=== PATIENT | female | born 1990 | race Hispanic/Latino ===

== ENCOUNTER 2018-03-30 14:54 | Emergency (ER) | payer OTHER, SELFPAY ==
--- NOTE | 2018-03-30 17:40 | RAD REPORT ---
EXAM DESCRIPTION: US - OB Limited - 03/30/2018 5:25 pm CLINICAL HISTORY: ABD PAIN age. COMPARISON: None FINDINGS: A single breech presenting gestation is identified. Heart rate normal. Examination was limited and anatomic survey was not requested. measurements are as follows: BPD:2.7 Centimeters 14 weeks 5 days HC:10.6 Centimeters 15 weeks 0 days AC:8.9 Centimeters 15 weeks 1 day HL:1.6 Centimeters 14 weeks 5 days FL:1.8 Centimeters 15 weeks 2 days The estimated gestational age (EGA) is 15 weeks 0 days with an ILYA of09/21/2018. The placenta is grade 0, posterior in location. No placenta previa. The amniotic fluid volume is normal. The maternal adnexa show no worrisome findings. IMPRESSION: 1. Single, breech gestation with an EGA of 15 weeks 0 days and an ILYA of the 09/21/2018. 2. A limited study was requested with no anatomic survey performed. 3. Grade 0, posterior placenta. 4. Amniotic fluid volume is normal.
[2018-03-30 17:55] LABS: Urine Bacteria 20-50 /HPF (<20); Urine Culture Reflex Order REFLEXED; Urine Mucus 2+ /HPF (NONE SEEN); Urine RBC <5 /HPF (NONE SEEN)
[2018-03-30 18:03] LABS: Urine Blood TRACE (NEG); Urine Glucose NEGATIVE (NEG); Urine Protein NEGATIVE (NEG); Urine Specific Gravity 1.025 (1.005-1.030); Urine pH 6.5 (5.0-7.0)
--- NOTE | 2018-03-30 18:07 | EDPHYS ---
Physician Documentation [facility] Name: Reese Baltazar Age: 27 yrs Sex: Female : 1990 Arrival Date: 03/30/2018 Time: 14:55 Bed 13 Private MD: ED Physician Aniceto Huynh HPI: 03/30 16:05 This 27 yrs old Female presents to ER via Ambulatory with complaints of Fall snw Injury, Abdominal Pain - 15 Weeks Preg. 16:05 Details of fall: The patient fell from an upright position, while standing, slipped in snw shower. Onset: The symptoms/episode began/occurred suddenly, this morning. Associated injuries: The patient sustained landed on right shoulder and right hip, denies hitting abdomen or head. Severity of symptoms: At their worst the symptoms were moderate. The patient has not experienced similar symptoms in the past. sees [facility] in [place]. 15wk IUP, . noted pink tinge on toilet paper this afternoon, mild upper abd cramping. Historical: - Allergies: 15:43 No Known Allergies; ph - PMHx: 15:43 Asthma; ph - PSHx: 15:43 ; ; ph - Immunization history:: Adult Immunizations up to date. - Social history:: Smoking status: Patient/guardian denies using tobacco. - Ebola Screening: : Patient denies travel to an Ebola-affected area in the 21 days before illness onset. ROS: 16:02 Constitutional: Negative for fever, chills, and weight loss, Eyes: Negative for injury, snw pain, redness, and discharge, ENT: Negative for injury, pain, and discharge, Neck: Negative for injury, pain, and swelling, Cardiovascular: Negative for chest pain, palpitations, and edema, Respiratory: Negative for shortness of breath, cough, wheezing, and pleuritic chest pain. 16:02 : Negative for injury, bleeding, discharge, and swelling. 16:02 Skin: Negative for injury, rash, and discoloration, Neuro: Negative for headache, weakness, numbness, tingling, and seizure. 16:02 Abdomen/GI: Positive for abdominal cramps. 16:02 Back: Positive for tenderness from right hip across lower back. 16:02 MS/extremity: Positive for injury or acute deformity, tenderness, of the right shoulder up into neck. Exam: 16:01 Constitutional: This is a well developed, well nourished patient who is awake, alert, snw and in no acute distress. Head/Face: Normocephalic, atraumatic. Eyes: Pupils equal round and reactive to light, extra-ocular motions intact. Lids and lashes normal. Conjunctiva and sclera are non-icteric and not injected. Cornea within normal limits. Periorbital areas with no swelling, redness, or edema. ENT: Nares patent. No nasal discharge, no septal abnormalities noted. Tympanic membranes are normal and external auditory canals are clear. Oropharynx with no redness, swelling, or masses, exudates, or evidence of obstruction, uvula midline. Mucous membranes moist. Neck: Trachea midline, no thyromegaly or masses palpated, and no cervical lymphadenopathy. Supple, full range of motion without nuchal rigidity, or vertebral point tenderness. No Meningismus. Chest/axilla: Normal chest wall appearance and motion. Nontender with no deformity. No lesions are appreciated. Cardiovascular: Regular rate and rhythm with a normal S1 and S2. No gallops, murmurs, or rubs. Normal PMI, no JVD. No pulse deficits. Respiratory: Lungs have equal breath sounds bilaterally, clear to auscultation and percussion. No rales, rhonchi or wheezes noted. No increased work of breathing, no retractions or nasal flaring. 16:01 Back: No spinal tenderness. No costovertebral tenderness. Full range of motion. Skin: Warm, dry with normal turgor. Normal color with no rashes, no lesions, and no evidence of cellulitis. MS/ Extremity: Pulses equal, no cyanosis. Neurovascular intact. Full, normal range of motion. Neuro: Awake and alert, GCS 15, oriented to person, place, time, and situation. Cranial nerves II-XII grossly intact. Motor strength 5/5 in all extremities. Sensory grossly intact. Cerebellar exam normal. Normal gait. 16:01 Abdomen/GI: Inspection: gravid appearance, is noted, Bowel sounds: normal, Palpation: abdomen is soft and non-tender, in all quadrants, FHT 160s. Vital Signs: 15:42 BP 134 / 92; Pulse 90; Resp 18; Temp 97.8; Pulse Ox 98% on R/A; Weight 68.04 kg; Height ph 5 ft. 0 in. (152.40 cm); 19:15 BP 116 / 67; Pulse 89; Resp 16; Pulse Ox 98% on R/A; jb4 15:42 Body Mass Index 29.29 (68.04 kg, 152.40 cm) ph MDM: 15:55 Patient medically screened. snw 17:54 Data reviewed: vital signs, nurses notes. Data interpreted: Pulse oximetry: on room air snw is 98 %. Interpretation: normal. Counseling: I had a detailed discussion with the patient and/or guardian regarding: the historical points, exam findings, and any diagnostic results supporting the discharge/admit diagnosis, radiology results, the need for outpatient follow up. Awaiting: labs results. 03/30 15:52 Order name: Urine Microscopic Only w 03/30 16:07 Order name: Abo/rh Typing snw 03/30 17:56 Order name: Urine Microscopic Only; Complete Time: 18:00 EDMS 03/30 18:01 Order name: Urine Dipstick--Ancillary (enter results) em 03/30 18:01 Order name: Urine --Ancillary (enter results) em 03/30 18:04 Order name: ABO/RH typing; Complete Time: 18:05 EDMS 03/30 15:52 Order name: Urine Dipstick-Ancillary (obtain specimen); Complete Time: 17:42 snw 03/30 15:52 Order name: FHT's; Complete Time: 16:14 snw 03/30 16:01 Order name: US OB Limited snw 03/30 17:42 Order name: US; Complete Time: 17:43 EDMS 03/30 18:04 Order name: Urine --Ancillary; Complete Time: 18:05 EDMS 03/30 18:04 Order name: Urine Dipstick-Ancillary; Complete Time: 18:05 EDMS Administered Medications: 19:12 Drug: Augmentin 875 mg Route: PO; jb4 19:13 Follow up: Response: No adverse reaction jb4 Disposition: 03/30/18 18:06 Discharged to Home. Impression: Fall on same level, unspecified, state, incidental, Urinary tract infection, site not specified. - Condition is Stable. - Discharge Instructions: Fall Prevention in the Home, Muscle Strain, and Urinary Tract Infection, Rehydration, Adult. - Prescriptions for Augmentin 875- 125 mg Oral Tablet - take 1 tablet by ORAL route every 12 hours for 10 days; 20 tablet. - Work release form, Medication Reconciliation Form, Thank You Letter, Antibiotic Education, Prescription Opioid Use form. - Follow up: Private Physician; When: 2 - 3 days; Reason: Recheck today's complaints, Continuance of care, Re-evaluation by your physician. Follow up: Emergency Department; When: As needed; Reason: Worsening of condition. Addendum: 04/01/2018 09:17 Co-signature as Attending Physician, Aniceto Huynh MD I agree with the assessment and k dr plan of care. Signatures: Dispatcher [employer] EDMS Dipti Funez, RN RN aj1 Aniceto Huynh MD MD [facility] Shira Dobbs, HOUSEKEEPING SUPERVISOR [employer]-C HOUSEKEEPING SUPERVISOR [employer] Yazmin Thurman, RN RN Lior Downs, BRIGHT RN jb4 Corrections: (The following items were deleted from the chart) 03/30 19:15 18:06 03/30/2018 18:06 Discharged to Home. Impression: Fall on same level, unspecified; jb4 state, incidental; Urinary tract infection, site not specified. Condition is Stable. Discharge Instructions: Fall Prevention in the Home, Muscle Strain, and Urinary Tract Infection, Rehydration, Adult. Prescriptions for Augmentin 875-125 mg Oral Tablet - take 1 tablet by ORAL route every 12 hours for 10 days; 20 tablet. and Forms are Medication Reconciliation Form, Thank You Letter, Antibiotic Education, Prescription Opioid Use. Follow up: Private Physician; When: 2 - 3 days; Reason: Recheck today's complaints, Continuance of care, Re-evaluation by your physician. Follow up: Emergency Department; When: As needed; Reason: Worsening of condition. snw
--- NOTE | 2018-03-30 18:07 | ER ---
Nurse's Notes [facility] Name: Reese Baltazar Age: 27 yrs Sex: Female : 1990 Arrival Date: 03/30/2018 Time: 14:55 Bed 13 Private MD: Diagnosis: Fall on same level, unspecified; state, incidental;Urinary tract infection, site not specified Presentation: 03/30 15:38 Presenting complaint: Patient states: Reports falling in shower this morning, landing ph on R side, denies head injury or LOC. States, " I'm 15 weeks and I didn't fall on my stomach so I wasn't worried, but after I went to work I started having cramping and one time when I went pee it was pinkish on the toilet paper." Pt denies bleeding at this time, reports abdominal cramping and "pressure", also c/o pain in R hip, R shoulder, or R side of neck. Care prior to arrival: None. Mechanism of Injury: Fall from standing position. Trauma event details: Injury occurred in the [facility], Injury occurred: in a public building. Injury occurred: March 30, 2018. 15:38 Acuity: MENA 3 ph 15:38 Method Of Arrival: Ambulatory ph 16:13 Transition of care: patient was not received from another setting of care. Onset of aj1 symptoms was March 30, 2018. Risk Assessment: Do you want to hurt yourself or someone else? Patient reports no desire to harm self or others. Initial Sepsis Screen: Does the patient meet any 2 criteria? No. Patient's initial sepsis screen is negative. Does the patient have a suspected source of infection? No. Patient's initial sepsis screen is negative. Historical: - Allergies: 15:43 No Known Allergies; ph - PMHx: 15:43 Asthma; ph - PSHx: 15:43 ; ; ph - Immunization history:: Adult Immunizations up to date. - Social history:: Smoking status: Patient/guardian denies using tobacco. - Ebola Screening: : Patient denies travel to an Ebola-affected area in the 21 days before illness onset. Screenin:10 Abuse screen: Denies threats or abuse. Denies injuries from another. Nutritional aj1 screening: No deficits noted. Tuberculosis screening: No symptoms or risk factors identified. 18:06 Fall Risk None identified. aj1 Assessment: 16:10 General: Appears in no apparent distress. comfortable, Behavior is calm, cooperative, aj1 appropriate for age. Pain: Complains of pain in right hip, anterior aspect of right shoulder and posterior aspect of right shoulder. Neuro: Level of Consciousness is awake, alert, obeys commands. Cardiovascular: Patient's skin is warm and dry. Respiratory: Airway is patent Respiratory effort is even, unlabored, Respiratory pattern is regular, symmetrical. GI: Abd is soft and non tender X 4 quads. Reports cramping. : Reports seeing pink when she wiped an hour ago, but she has not been pink when she wipes since then. EENT: No signs and/or symptoms were reported regarding the EENT system. Derm: No signs and/or symptoms reported regarding the dermatologic system. Skin is pink, warm \\T\\ dry. normal. Musculoskeletal: No signs and/or symptoms reported regarding the musculoskeletal system. Circulation, motion, and sensation intact. 17:10 Reassessment: Patient appears in no apparent distress at this time. No changes from aj1 previously documented assessment. Patient and/or family updated on plan of care and expected duration. Pain level reassessed. Patient is alert, oriented x 3, equal unlabored respirations, skin warm/dry/pink. 18:06 Reassessment: Patient appears in no apparent distress at this time. No changes from aj1 previously documented assessment. Patient and/or family updated on plan of care and expected duration. Pain level reassessed. Patient is alert, oriented x 3, equal unlabored respirations, skin warm/dry/pink. 19:15 Reassessment: Patient appears in no apparent distress at this time. Patient and/or jb4 family updated on plan of care and expected duration. Pain level reassessed. Patient is alert, oriented x 3, equal unlabored respirations, skin warm/dry/pink. Vital Signs: 15:42 BP 134 / 92; Pulse 90; Resp 18; Temp 97.8; Pulse Ox 98% on R/A; Weight 68.04 kg; Height ph 5 ft. 0 in. (152.40 cm); 19:15 BP 116 / 67; Pulse 89; Resp 16; Pulse Ox 98% on R/A; jb4 15:42 Body Mass Index 29.29 (68.04 kg, 152.40 cm) ph Vitals: 16:10 Heart Tones 160. aj1 ED Course: 14:55 Patient arrived in ED. as 15:41 Triage completed. ph 15:43 Arm band placed on. ph 15:44 Dipti Funez, RN is Primary Nurse. aj1 15:50 [facility] Dob[facility]C [facility] snw 15:50 Aniceto Huynh MD is Attending Physician. snw 16:10 Patient has correct armband on for positive identification. Bed in low position. Call aj1 light in reach. Side rails up X 1. 16:10 No provider procedures requiring assistance completed. aj1 17:25 Ultrasound completed. Patient tolerated well. aa4 19:14 Patient did not have IV access during this emergency room visit. jb4 Administered Medications: 19:12 Drug: Augmentin 875 mg Route: PO; jb4 19:13 Follow up: Response: No adverse reaction jb4 Outcome: 18:06 Discharge ordered by . snw 19:14 Discharged to home ambulatory. jb4 19:14 Condition: stable 19:14 Discharge instructions given to patient, Instructed on discharge instructions, follow up and referral plans. medication usage, Demonstrated understanding of instructions, follow-up care, medications, Prescriptions given X 1. 19:15 Patient left the ED. jb4 Signatures: Dipti Funez, RN RN aj Shira Dobbs FNP-C FNP-Tricia Nye Amanda aa4 Yazmin Thurman RN RN ph Bryson, James, RN RN jb4
[2018-03-30] MEDS ORDERED: AMOX/K CLAV 875 MG TAB ONE (19:08)
[2018-03-30 19:33] VITALS: TEMP 97.8; O2SAT 98
[2018-03-30 19:34] VITALS: BP 116/67
== END 2018-03-30 19:15 | disposition home or self-care (01) ==
LOC: ER 14:54
DX: O23.42 Unspecified infection of urinary tract in pregnancy, second trimester (principal); W18.2XXA Fall in (into) shower or empty bathtub, initial encounter; Y93.E1 Activity, personal bathing and showering; Y92.002 Bathroom of unspecified non-institutional (private) residence as the place of occurrence of the external cause; Z3A.15 15 weeks gestation of pregnancy
CPT/HCPCS: 76815; 81003; 81015; 81025; 86900; 86901; 87086; 87088; 99283

== ENCOUNTER 2020-08-28 14:43 | Emergency (ER) | payer OTHER, SELFPAY ==
--- OUTSIDE RECORDS SUMMARY | 2020-08-28 14:46 | XMS REPORT | Continuity of Care Document ---
:1990 Author Organization [facility] t Address [address] [place] [address] Care Team Providers Name Role Phone Unavailable Unavailable Unavailable Payers Payer Name Policy Type Policy Number Effective Date Expiration Date S ource Problems This patient has no known problems. Allergies, Adverse Reactions, Alerts Allergy Allergy Status Severity Reaction(s) Onset Inactive Treating Comm ents Source Name Type Date Date Clinician No Known DA Active U [facility] [place] acetamin DA Active SV 2012-0 [facility] ophen 2-18 [facility] [place] apple DA Active U 2012- [facility] 2[facility] [place] NUTS DA Active U 2012[facility]0 [facility] 2[facility] [place] Medications This patient has no known medications. Procedures This patient has no known procedures. Results Test Description Test Time Test Comments Results Result Comments Source CBC W/AUTO DIFF 2018-09-14 08:05:00 Test Item Value Reference Range Interpretation Comme nts WHITE BLOOD CELL (test code = WBC) 13.0 K/mm3 6.6-12.1 H RED BLOOD CELL (test code = RBC) 2.92 M/mm3 3.45-5.01 L HEMOGLOBIN (test code = HGB) 8.2 g/dL 10.7-13.9 L HEMATOCRIT (test code = HCT) 26.5 % 32.1-42.1 L MEAN CELL VOLUME (test code = MCV) 91 fL 84.1-94.8 N MEAN CELL HGB (test code = MCH) 28.1 pg 27-35 N MEAN CELL HGB CONCETRATION (test code = MCHC) 30.9 gm/dL 32.2-34. 1 L RED CELL DISTRIBUTION WIDTH (test code = RDW) 13.7 % 12.4-16. 5 N PLATELET COUNT (test code = PLT) 229 K/mm3 133-385 N IMMATURE PLATELET FRACTION (test code = IPF) 0.0 % 0.0-10.8 N MEAN PLATELET VOLUME (test code = MPV) 10.7 fl 9.1-12.7 N NEUTROPHIL % (test code = NT%) 74.3 % 56.5-79.4 N LYMPHOCYTE % (test code = LY%) 15.7 % 14.3-34.3 N MONOCYTE % (test code = MO%) 7.9 % 5.1-10.4 N EOSINOPHIL % (test code = EO%) 1.4 % 0.1-3.0 N BASOPHIL % (test code = BA%) 0.2 % 0.1-1.0 N NEUTROPHIL # (test code = NT#) 9.6 K/mm3 LYMPHOCYTE # (test code = LY#) 2.0 K/mm3 MONOCYTE # (test code = MO#) 1.0 K/mm3 EOSINOPHIL # (test code = EO#) 0.18 K/mm3 BASOPHIL # (test code = BA#) 0.0 K/mm3 RBC MORPHOLOGY REQUIRED (test code = RBCM) NORMAL NORMAL PLATELET MORPHOLOGY REQUIRED (test code = PLTMR) NORMAL GORGE L AG HEPATITIS B [id number] 13:36:00 Test Item Value Reference Range Interpretation Comments AG HEPATITIS B SURFACE (test code NONREACTIVE NONREACTIVE = HBSAG) : *IS CONSENT FORM SIGNED FOR HIV TESTING? YAB [id number] 13:36:00 Test Item Value Reference Range Interpretation Comments AB TREPONEMA (test code = TREPAB) NONREACTIVE NONREACTIVE : *IS CONSENT FORM SIGNED FOR HIV TESTING? YAB HIV 1 13:36:00 Test Item Value Reference Range Interpretation Comments AB HIV 1 2 (test NONREACTIVE NONREACTIVE Done by Rusty [facility] Jeanr code = [id number]) 4th Gen HIV Ag/Ab Combo Screen : *IS CONSENT FORM SIGNED FOR HIV TESTING? YAG HEPATITIS B [id number] 13:07:00 Test Item Value Reference Range Interpretation Comments AG HEPATITIS B SURFACE (test code NONREACTIVE NONREACTIVE = HBSAG) : *IS CONSENT FORM SIGNED FOR HIV TESTING? YAB [id number] 13:07:00 Test Item Value Reference Range Interpretation Comments AB TREPONEMA (test code = TREPAB) NONREACTIVE NONREACTIVE : *IS CONSENT FORM SIGNED FOR HIV TESTING? YAB HIV 1 13:07:00 Test Item Value Reference Range Interpretation Comments AB HIV 1 2 (test code = LTQ40DE) NONREACTIVE : *IS CONSENT FORM SIGNED FOR HIV TESTING? YCBC W/AUTO [id number] 12:26:00 Test Item Value Reference Range Interpretation Comments WHITE BLOOD CELL (test code = WBC) 8.2 K/mm3 6.6-12.1 N RED BLOOD CELL (test code = RBC) 3.34 M/mm3 3.45-5.01 L HEMOGLOBIN (test code = HGB) 9.4 g/dL 10.7-13.9 L HEMATOCRIT (test code = HCT) 30.3 % 32.1-42.1 L MEAN CELL VOLUME (test code = MCV) 91 fL 84.1-94.8 N MEAN CELL HGB (test code = MCH) 28.1 pg 27-35 N MEAN CELL HGB CONCETRATION (test 31.0 gm/dL 32.2-34.1 L code = MCHC) RED CELL DISTRIBUTION WIDTH (test 14.0 % 12.4-16.5 N code = RDW) PLATELET COUNT (test code = PLT) 261 K/mm3 133-385 N IMMATURE PLATELET FRACTION (test 0.0 % 0.0-10.8 N code = IPF) MEAN PLATELET VOLUME (test code = 10.0 fl 9.1-12.7 N MPV) NEUTROPHIL % (test code = NT%) 59.9 % 56.5-79.4 N LYMPHOCYTE % (test code = LY%) 22.1 % 14.3-34.3 N MONOCYTE % (test code = MO%) 6.4 % 5.1-10.4 N EOSINOPHIL % (test code = EO%) 10.5 % 0.1-3.0 H BASOPHIL % (test code = BA%) 0.7 % 0.1-1.0 N NEUTROPHIL # (test code = NT#) 4.9 K/mm3 LYMPHOCYTE # (test code = LY#) 1.8 K/mm3 MONOCYTE # (test code = MO#) 0.5 K/mm3 EOSINOPHIL # (test code = EO#) 0.86 K/mm3 BASOPHIL # (test code = BA#) 0.1 K/mm3 RBC MORPHOLOGY REQUIRED (test code NORMAL NORMAL = RBCM) PLATELET MORPHOLOGY REQUIRED (test NORMAL NORMAL code = PLTMR)
[2020-08-28] MEDS ORDERED: IPRATROPIUM BROM 0.5MG/2.5ML ONE (16:01)
[2020-08-28] MEDS ORDERED: ALBUTEROL 2.5 MG/3 ML NEB SOL ONE ×2 (16:01→18:15)
--- NOTE | 2020-08-28 16:16 | RAD REPORT ---
EXAM DESCRIPTION: Steven Single View08/28/2020 3:38 pm CLINICAL HISTORY: Shortness of breath COMPARISON: none FINDINGS: The lungs appear clear of acute infiltrate. The heart is normal size IMPRESSION: No acute abnormalities displayed
[2020-08-28] MEDS ORDERED: hydrOXYzine HCL 25 MG TAB ONE (18:15)
[2020-08-28] MEDS ORDERED: METHYLPREDNISOLONE 125 MG INJ ONE (18:15)
[2020-08-28 19:18] LABS: SARS-COV-2 RT PCR NEGATIVE (NEGATIVE)
--- NOTE | 2020-08-28 19:23 | EDPHYS ---
Physician Documentation [facility] Name: Reese Baltazar Age: 30 yrs Sex: Female : 1990 Arrival Date: 08/28/2020 Time: 14:46 Bed 27 Private MD: ED Physician Jitendra Short HPI: 08/28 18:24 This 30 yrs old Female presents to ER via Ambulatory with complaints of kb Shortness Of Breath. 18:24 The patient has shortness of breath at rest. Onset: The symptoms/episode began/occurred kb 3 day(s) ago. Duration: The symptoms are continuous. The patient's shortness of breath is aggravated by nothing, is alleviated by nothing. Associated signs and symptoms: Pertinent positives: non-productive cough. Severity of symptoms: At their worst the symptoms were moderate severe in the emergency department the symptoms are unchanged. The patient has experienced similar episodes in the past. The patient has not recently seen a physician. Pt reports shortness of breath and wheezing that started 3 days ago. Worse today. States the wheezing causes anxiety and it keeps getting worse. Took 2 treatments and used her inhaler multiple times with no relief. Pt appears anxious, hyperventilating. O2 100% on room air, lungs clear. Pt coached to control her breathing. Pt reports her daughter had similar symptoms last week and now her and her have this. 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 - Social history:: Smoking status: Patient reports the use of cigarette tobacco products, denies chronic smoking, but will smoke occasionally. ROS: 17:47 Constitutional: Negative for fever, chills, and weight loss, Cardiovascular: Negative kb for chest pain, palpitations, and edema, Abdomen/GI: Negative for abdominal pain, nausea, vomiting, diarrhea, and constipation, MS/Extremity: Negative for injury and deformity, Skin: Negative for injury, rash, and discoloration, Neuro: Negative for headache, weakness, numbness, tingling, and seizure. 17:47 Respiratory: Positive for cough, shortness of breath. Exam: 17:47 Constitutional: This is a well developed, well nourished patient who is awake, alert, kb and in no acute distress. Head/Face: Normocephalic, atraumatic. Cardiovascular: Regular rate and rhythm with a normal S1 and S2. No gallops, murmurs, or rubs. No pulse deficits. Abdomen/GI: Soft, non-tender. No distention Skin: Warm, dry with normal turgor. Normal color. MS/ Extremity: Pulses equal, no cyanosis. Neurovascular intact. Full, normal range of motion. Neuro: Awake and alert, GCS 15, oriented to person, place, time, and situation. Moves all extremities. Normal gait. 17:47 Constitutional: The patient appears anxious. 17:47 Respiratory: the patient does not display signs of respiratory distress, Respirations: hyperventilating, Breath sounds: are clear throughout, Respiratory: the patient does not display signs of respiratory distress, Respirations: hyperventilating, Breath sounds: are clear throughout. Vital Signs: 14:50 BP 146 / 97; Pulse 94; Resp 20; Temp 98.1; Pulse Ox 98% on R/A; Pain 0/10; hb 16:21 BP 123 / 68; Pulse 94; Resp 20; Pulse Ox 98% on R/A; Pain 5/10; kg 17:20 BP 128 / 63; Pulse 86; Resp 20; Pulse Ox 99% on R/A; kg 19:49 BP 129 / 73; Pulse 87; Resp 16; Temp 98.7; Pulse Ox 96% ; Pain 0/10; kg MDM: 14:59 Patient medically screened. [facility] 17:46 Data reviewed: vital signs, nurses notes. Data interpreted: Pulse oximetry: on room air kb is 98 %. Interpretation: normal. ED course: Pt was feeling better after treatment, now states she is feeling worse.. 18:24 Counseling: I had a detailed discussion with the patient and/or guardian regarding: the kb historical points, exam findings, and any diagnostic results supporting the discharge/admit diagnosis, lab results, radiology results, the need for outpatient follow up, a family practitioner, to return to the emergency department if symptoms worsen or persist or if there are any questions or concerns that arise at home. 08/28 17:46 Order name: COVID-19 : Document "Date of Symptom Onset" if Symptomatic. 08/28 17:46 Order name: Flu kb 08/28 15:26 Order name: Chest Single View XRAY; Complete Time: 16:22 kb 08/28 19:18 Order name: COVID-19/FLU A+B; Complete Time: 19:21 EDMS Administered Medications: 15:43 Drug: DuoNeb (albuterol 2.5 mg, ipratropium 0.5 mg) (3:1) (2.5 mg - 0.5 mg) 3 ml Route: kg Nebulizer; 16:20 Follow up: Response: No adverse reaction; Marked relief of symptoms kg 19:46 Follow up: Response: No adverse reaction; Marked relief of symptoms kg 18:03 Drug: SOLU-Medrol (methylPREDNISolone sodium succinate) 125 mg Route: IM; Site: right kg deltoid; 18:44 Follow up: Response: No adverse reaction kg 19:46 Follow up: Response: No adverse reaction kg 18:03 Drug: Albuterol 2.5 mg Route: Inhalation; kg 18:44 Follow up: Response: No adverse reaction; Marked relief of symptoms kg 19:46 Follow up: Response: No adverse reaction; Marked relief of symptoms kg 18:03 Drug: hydrOXYzine 25 mg Route: PO; kg 18:44 Follow up: Response: No adverse reaction; Marked relief of symptoms kg 19:45 Follow up: Response: No adverse reaction kg Disposition: 08/29 08:02 Co-signature as Attending Physician, Jitendra Short MD I agree with the assessment and suly plan of care. Disposition: 08/28/20 19:22 Discharged to Home. Impression: Unspecified asthma with (acute) exacerbation, Anxiety disorder, unspecified. - Condition is Stable. - Discharge Instructions: Asthma, Adult, [id number], Panic Attacks, [id number]. - Prescriptions for Prednisone 20 mg Oral Tablet - take 1 tablet by ORAL route once daily for 5 days; 5 tablet. Albuterol Sulfate 2.5 mg /3 mL (0.083 %) Inhalation Solution for Nebulization - inhale 1 unit by NEBULIZATION route every 8 hours As needed; 1 box. - Medication Reconciliation Form, Thank You Letter, Antibiotic Education, Prescription Opioid Use form. - Follow up: Emergency Department; When: As needed; Reason: Worsening of condition. Follow up: Private Physician; When: 2 - 3 days; Reason: Recheck today's complaints, Continuance of care, Re-evaluation by your physician. Signatures: Dispatcher [employer] EDDottie Mcclendon, PARENTING SKILLS INSTRUCTOR-C PARENTING SKILLS INSTRUCTOR-Jitendra Ly MD MD cha Baxter, Heather, RN RN Deana Grigsby kg Corrections: (The following items were deleted from the chart) 08/28 19:50 19:22 08/28/2020 19:22 Discharged to Home. Impression: Unspecified asthma with (acute) kg exacerbation; Anxiety disorder, unspecified. Condition is Stable. Discharge Instructions: Asthma, Adult, [id number]-Mwes, Panic Attacks, [id number]. Prescriptions for Prednisone 20 mg Oral Tablet - take 1 tablet by ORAL route once daily for 5 days; 5 tablet. and Forms are Medication Reconciliation Form, Thank You Letter, Antibiotic Education, Prescription Opioid Use. Follow up: Emergency Department; When: As needed; Reason: Worsening of condition. Follow up: Private Physician; When: 2 - 3 days; Reason: Recheck today's complaints, Continuance of care, Re-evaluation by your physician. kb
--- NOTE | 2020-08-28 19:23 | ER ---
Nurse's Notes [facility] Name: Reese Baltazar Age: 30 yrs Sex: Female : 1990 Arrival Date: 08/28/2020 Time: 14:46 Bed 27 Private MD: Diagnosis: Unspecified asthma with (acute) exacerbation;Anxiety disorder, unspecified Presentation: 08/28 14:50 Chief complaint: SOB x 3 days, worse today, unrelieved by albuterol nebs. Coronavirus hb screen: Client presents with at least one sign or symptom that may indicate coronavirus-19. Standard/surgical mask placed on the client. Provider contacted for isolation considerations. Ebola Screen: No symptoms or risks identified at this time. Initial Sepsis Screen: Does the patient meet any 2 criteria? No. Patient's initial sepsis screen is negative. Does the patient have a suspected source of infection? No. Patient's initial sepsis screen is negative. Risk Assessment: Do you want to hurt yourself or someone else? Patient reports no desire to harm self or others. Onset of symptoms was August 26, 2020. 14:50 Method Of Arrival: Ambulatory hb 14:50 Acuity: MENA 3 hb Triage Assessment: 16:30 General: Appears distressed, Pt appears to be very anxious. Behavior is cooperative, kg anxious. Respiratory: Reports shortness of breath cough that is air hunger pain with cough since three days ago Pain is 5 out of 10 on a pain scale. Onset: The symptoms/episode began/occurred the patient has moderate shortness of breath. 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 - Social history:: Smoking status: Patient reports the use of cigarette tobacco products, denies chronic smoking, but will smoke occasionally. Screenin:15 Abuse screen: Denies threats or abuse. Nutritional screening: No deficits noted. kg Tuberculosis screening: No symptoms or risk factors identified. Fall Risk None identified. No fall in past 12 months (0 pts). No secondary diagnosis (0 pts). No IV (0 pts). Ambulatory Aid- None/Bed Rest/Nurse Assist (0 pts). Gait- Normal/Bed Rest/Wheelchair (0 pts) Mental Status- Oriented to own ability (0 pts). Total Crawford Fall Scale indicates No Risk (0-24 pts). Assessment: 16:21 General: Appears distressed, Behavior is appropriate for age, anxious, restless. Pain: kg Complains of pain in anterior aspect of right upper chest and right breast Pain currently is 5 out of 10 on a pain scale. at worst was 7 out of 10 on a pain scale. level that patient reports is acceptable is 3 out of 10 on a pain scale. Quality of pain is described as squeezing. Neuro: No deficits noted. Cardiovascular: No deficits noted. Rhythm is regular. Respiratory: Airway is patent Respiratory effort is even, Respiratory pattern is regular, tachypnea Breath sounds with wheezes bilaterally. GI: No deficits noted. : No deficits noted. EENT: No deficits noted. Derm: No deficits noted. Musculoskeletal: No deficits noted. 19:47 Reassessment: Patient and/or family updated on plan of care and expected duration. Pain kg level reassessed. Respiratory: Airway is patent Respiratory effort is even, unlabored, Respiratory pattern is regular. Vital Signs: 14:50 BP 146 / 97; Pulse 94; Resp 20; Temp 98.1; Pulse Ox 98% on R/A; Pain 0/10; hb 16:21 BP 123 / 68; Pulse 94; Resp 20; Pulse Ox 98% on R/A; Pain 5/10; kg 17:20 BP 128 / 63; Pulse 86; Resp 20; Pulse Ox 99% on R/A; kg 19:49 BP 129 / 73; Pulse 87; Resp 16; Temp 98.7; Pulse Ox 96% ; Pain 0/10; kg ED Course: 14:46 Patient arrived in ED. as 14:46 Dottie Heath FNP-C is [facility]. kb 14:46 Jitendra Short MD is Attending Physician. kb 14:51 Triage completed. hb 14:51 Arm band placed on. hb 15:38 Chest Single View XRAY In Process Unspecified. EDMS 15:40 Deana Byrd is Primary Nurse. kg 18:16 No provider procedures requiring assistance completed. Patient did not have IV access kg during this emergency room visit. 18:17 Patient has correct armband on for positive identification. Bed in low position. Call kg light in reach. Side rails up X 1. 18:43 Influenza Screen (A Sent. kg 18:43 CORONAVIRUS Sent. kg 18:44 COVID-19 : Document "Date of Symptom Onset" if Symptomatic. Sent. kg 19:16 Report given to Ene NOVOA. kg Administered Medications: 15:43 Drug: DuoNeb (albuterol 2.5 mg, ipratropium 0.5 mg) (3:1) (2.5 mg - 0.5 mg) 3 ml Route: kg Nebulizer; 16:20 Follow up: Response: No adverse reaction; Marked relief of symptoms kg 19:46 Follow up: Response: No adverse reaction; Marked relief of symptoms kg 18:03 Drug: SOLU-Medrol (methylPREDNISolone sodium succinate) 125 mg Route: IM; Site: right kg deltoid; 18:44 Follow up: Response: No adverse reaction kg 19:46 Follow up: Response: No adverse reaction kg 18:03 Drug: Albuterol 2.5 mg Route: Inhalation; kg 18:44 Follow up: Response: No adverse reaction; Marked relief of symptoms kg 19:46 Follow up: Response: No adverse reaction; Marked relief of symptoms kg 18:03 Drug: hydrOXYzine 25 mg Route: PO; kg 18:44 Follow up: Response: No adverse reaction; Marked relief of symptoms kg 19:45 Follow up: Response: No adverse reaction kg Outcome: 19:22 Discharge ordered by . kb 19:47 Discharged to home ambulatory. kg 19:47 Condition: improved 19:47 Discharge instructions given to patient, Instructed on discharge instructions, follow up and referral plans. medication usage, Demonstrated understanding of instructions, follow-up care, medications, Prescriptions given X 1. 19:50 Patient left the ED. kg Signatures: Dispatcher [employer] EDDottie Mcclendon, Tricia Lamb Heather, RN RN hb Graham, Kristen kg
[2020-08-28 20:01] VITALS: BP 129/73; TEMP 98.7; O2SAT 96
== END 2020-08-28 19:50 | disposition home or self-care (01) ==
LOC: ER 14:43
DX: J45.901 Unspecified asthma with (acute) exacerbation (principal); F41.9 Anxiety disorder, unspecified; Z20.822 Contact with and (suspected) exposure to COVID-19; F17.210 Nicotine dependence, cigarettes, uncomplicated
CPT/HCPCS: 0240U; 71045; 96372; 99284; J2930

== ENCOUNTER 2021-04-21 15:03 | Emergency (ER) | payer SELFPAY ==
[2021-04-21] MEDS ORDERED: CLINDAMYCIN 900MG/D5W 900 MG/50 ML IVPB IV ONE (17:49)
[2021-04-21] MEDS ORDERED: NA CHLORIDE 0.9% 1,000 ML ONE (17:49)
[2021-04-21 18:00] LABS: Urine Blood 3+ (Negative); Urine Glucose Negative (Negative); Urine Protein 1+ (Negative); Urine Specific Gravity >=1.030 (1.005-1.030); Urine pH 5.5 (5.0-7.0)
[2021-04-21 18:02] LABS: Absolute Lymphocytes (CBC) 1.1 K/uL (0.7-4.9); Basophils % 0.4 % (0-1.3); Hematocrit 36.2 % (36.0-45.0); Lymphocytes % 26.1 % (15.3-44.8); MPV 7.8 fL (7.6-11.3); RBC Red Blood Cell Count 3.93 M/uL (3.86-4.86)
[2021-04-21 18:25] LABS: Albumin 3.7 g/dL (3.4-5.0); Bilirubin Total 0.7 mg/dL (0.2-1.0); Potassium 3.1 mmol/L (3.5-5.1); Protein, Total 7.8 g/dL (6.4-8.2)
[2021-04-21 18:58] LABS: Urine Specific Gravity/Preg >1.030 (1.005-1.030)
[2021-04-21] MEDS ORDERED: POTASSIUM CL SA 10 MEQ TAB PO ONE (19:13)
--- NOTE | 2021-04-21 19:25 | EDPHYS ---
Physician Documentation [facility] Name: Reese Baltazar Age: 30 yrs Sex: Female : 1990 Arrival Date: 04/21/2021 Time: 15:05 Bed 12 Private MD: ED Physician Aniceto Huynh HPI: 04/21 17:27 This 30 yrs old Female presents to ER via Ambulatory with complaints of Facial jmm Swelling, Sore Throat, Toothache. 19:21 Onset: The symptoms/episode began/occurred gradually, 3 week(s) ago. Associated signs jmm and symptoms: Loss of consciousness: This patient did not experience any loss of consciousness. Is a 30-year-old female with no known chronic medical conditions that presents emerged part with complaints of right lower molar pain and drainage. Patient states that she has developed some chills fever. Denies cough or congestion. Patient was evaluated via telemedicine with concern she may be septic.. 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 - Social history:: Smoking status: . ROS: 19:21 Constitutional: Positive for body aches, chills. jmm 19:21 ENT: Positive for dental pain. 19:21 All other systems are negative. Exam: 19:21 Constitutional: This is a well developed, well nourished patient who is awake, alert, jmm and in no acute distress. Head/Face: atraumatic. Eyes: EOMI, no conjunctival erythema appreciated 19:21 Neck: Trachea midline, Supple Chest/axilla: Normal chest wall appearance and motion. Cardiovascular: Regular rate and rhythm. No edema appreciated Respiratory: Normal respirations, no respiratory distress appreciated Abdomen/GI: Non distended, soft Back: Normal ROM Skin: General appearance color normal MS/ Extremity: Moves all extremities, no obvious deformities appreciated, no edema noted to the lower extremities Neuro: Awake and alert, normal gait Psych: Behavior is normal, Mood is normal, Patient is cooperative and pleasant 19:21 ENT: Dental exam: gum swelling, that is mild, specifically in the lower right first molar (#30) and lower right second molar (#31). Vital Signs: 15:06 BP 117 / 90; Pulse 71; Resp 17; Temp 98.8(TE); Pulse Ox 100% on R/A; Weight 70.31 kg tw2 (R); Height 5 ft. 0 in. (152.40 cm); Pain 5/10; 15:06 Body Mass Index 30.27 (70.31 kg, 152.40 cm) tw2 MDM: 17:27 Patient medically screened. [facility] 19:22 Data reviewed: vital signs, nurses notes. Counseling: I had a detailed discussion with [facility] the patient and/or guardian regarding: the historical points, exam findings, and any diagnostic results supporting the discharge/admit diagnosis, lab results, the need for outpatient follow up, to return to the emergency department if symptoms worsen or persist or if there are any questions or concerns that arise at home. ED course: Patient is alert nontoxic patient is alert nontoxic in appearance in the ED. No signs of sepsis. Labs are unremarkable. Patient prescribed oral abx. Advised to follow up with dentist/omfs and otherwise given strict return precautions. Patient understood and agrees with the plan of care. . 04/21 17:37 Order name: CBC with Diff; Complete Time: 18:59 [facility] 04/21 17:37 Order name: CMP; Complete Time: 18:30 [facility] 04/21 17:38 Order name: Procalcitonin; Complete Time: 18:59 [facility] 04/21 17:38 Order name: Lactate; Complete Time: 18:59 [facility] 04/21 17:59 Order name: Urine Dipstick-Ancillary; Complete Time: 18:02 [facility] 04/21 18:03 Order name: Urine --Ancillary (enter results); Complete Time: 18:59 04/21 17:37 Order name: Saline Lock; Complete Time: 17:55 [facility] 04/21 17:38 Order name: Urine Dipstick-Ancillary (obtain specimen); Complete Time: 17:57 [facility] Administered Medications: 17:36 Not Given (Duplicate Order): Clindamycin 600 mg IM once [facility] 18:01 Drug: Clindamycin 900 mg Route: IVPB; Infused Over: 30 mins; Site: left antecubital; 18:01 Drug: NS 0.9% 1000 ml Route: IV; Rate: 1 bolus; Site: left antecubital; 19:16 Drug: Potassium Chloride 40 mEq Route: PO; 19:53 Follow up: Response: No adverse reaction lp1 Disposition: 04/22 08:15 Co-signature as Attending Physician, Aniceto Huynh MD I agree with the assessment and kdr plan of care. Disposition Summary: 04/21/21 19:25 Discharge Ordered Location: Home [facility] Condition: Stable [facility] Diagnosis - Dental Pain [facility] Followup: [facility] - With: Darrian Cramer DDS - When: 2 - 3 days - Reason: Recheck today's complaints, Continuance of care, Re-evaluation by your physician Discharge Instructions: - Dental Pain [facility] - Discharge Summary Sheet tw2 Forms: - Medication Reconciliation Form [facility] - Thank You Letter [facility] - Work release form tw2 - Antibiotic Education [facility] - Prescription Opioid Use [facility] Prescriptions: - Peridex 0.12 % Mucous Membrane mouthwash - place 15 milliliter by MUCOUS MEMBRANE route 2 times per day after brushing [facility] teeth, swish in mouth for 30 seconds then spit out; 1 bottle; Refills: 0, Product Selection Permitted - Clindamycin HCl 300 mg Oral Capsule - take 1 capsule by ORAL route every 6 hours for 10 days; 40 capsule; Refills: 0, [facility] Product Selection Permitted Signatures: Dispatcher [employer] JESSIEDE Aniceto Huynh MD MD [facility] Fransisco Ricks PA PA [facility] Ana Parker RN RN Arti Erazo RN RN tw2 Jacki Diaz RN lp1 Corrections: (The following items were deleted from the chart) 04/21 15:14 15:13 Allergies: No Known Allergies; 15:14 15:13 Home Meds: None;
--- NOTE | 2021-04-21 19:25 | ER ---
Nurse's Notes [facility] Name: Reese Baltazar Age: 30 yrs Sex: Female : 1990 Arrival Date: 04/21/2021 Time: 15:05 Bed 12 Private MD: Diagnosis: Dental Pain Presentation: 04/21 15:06 Chief complaint: Patient states: i just finished talking to [employer] over the phone. she tw2 thinks i may be getting septic from my abscess tooth. i am having fever. constant body aches. i started tasting something rotten when i drank or ate about 3 weeks ago. i frequently get tonsil stones. so i started gargling with hydrogen peroxide. but i found out about the abscessed tooth about 4 days ago. i lost my voice last week and i am congested. i have a headache. i was testing for covid 5 days ago and it was negative. and my stomach hurts. Coronavirus screen: chills, congestion, cough unrelated to allergies, fever, Client presents with at least one sign or symptom that may indicate coronavirus-19. Standard/surgical mask placed on the client. Provider contacted for isolation considerations. Ebola Screen: Patient denies travel to an Ebola-affected area in the 21 days before illness onset. Initial Sepsis Screen: Does the patient meet any 2 criteria? No. Patient's initial sepsis screen is negative. Does the patient have a suspected source of infection? No. Patient's initial sepsis screen is negative. Risk Assessment: Do you want to hurt yourself or someone else? Patient reports no desire to harm self or others. Onset of symptoms was April 21, 2021. 15:06 Method Of Arrival: Ambulatory tw2 15:06 Acuity: MENA 3 tw2 Triage Assessment: 15:15 General: Appears in no apparent distress. Behavior is calm, cooperative, appropriate tw2 for age. Pain: Complains of pain in mouth and stomach. EENT: Reports nasal congestion. GI: Reports intolerance of fluids, intolerance of food, "i only get nauseous when i need to eat or when i am eating, but right now i am fine". 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 - Social history:: Smoking status: . Screenin:16 Abuse screen: Denies threats or abuse. Nutritional screening: No deficits noted. tw2 Tuberculosis screening: No symptoms or risk factors identified. Fall Risk None identified. Assessment: 15:16 Respiratory: Airway is patent Respiratory effort is even, unlabored, n/a. tw2 17:27 General: Appears in no apparent distress. Behavior is calm, cooperative. Pain: iw Complains of pain in right jaw. Neuro: Level of Consciousness is awake, alert, obeys commands, Oriented to person, place, time, situation, Moves all extremities. Full function. Cardiovascular: Patient's skin is warm and dry. Derm: Skin is intact, is healthy with good turgor. Musculoskeletal: Range of motion: intact in all extremities. 17:40 General: Appears in no apparent distress. comfortable, Behavior is calm, cooperative. iw General: Reports fever for 1-2 days, fatigue for. Pain:. 19:20 Reassessment: Patient appears in no apparent distress at this time. Patient and/or iw family updated on plan of care and expected duration. Pain level reassessed. Patient is alert, oriented x 3, equal unlabored respirations, skin warm/dry/pink. Vital Signs: 15:06 BP 117 / 90; Pulse 71; Resp 17; Temp 98.8(TE); Pulse Ox 100% on R/A; Weight 70.31 kg tw2 (R); Height 5 ft. 0 in. (152.40 cm); Pain 5/10; 15:06 Body Mass Index 30.27 (70.31 kg, 152.40 cm) tw2 ED Course: 15:05 Patient arrived in ED. mr 15:13 Triage completed. tw2 15:14 Arm band placed on. tw2 17:18 Fransisco Ricks PA is PHCP. [facility] 17:18 Aniceto Huynh MD is Attending Physician. [facility] 17:18 Ana Parker, BRIGHT is Primary Nurse. iw 17:28 No provider procedures requiring assistance completed. Patient did not have IV access iw during this emergency room visit. 17:48 Initial lab(s) drawn, by me, sent to lab. Inserted saline lock: 22 gauge in left dh3 antecubital area, using aseptic technique. Blood collected. 19:24 Darrian Cramer DDS is Referral Physician. [facility] 19:52 IV discontinued, No redness/swelling at site. Pressure dressing applied. lp1 Administered Medications: 17:36 Not Given (Duplicate Order): Clindamycin 600 mg IM once [facility] 18:01 Drug: Clindamycin 900 mg Route: IVPB; Infused Over: 30 mins; Site: left antecubital; iw 18:01 Drug: NS 0.9% 1000 ml Route: IV; Rate: 1 bolus; Site: left antecubital; iw 19:16 Drug: Potassium Chloride 40 mEq Route: PO; iw 19:53 Follow up: Response: No adverse reaction lp1 Outcome: 19:25 Discharge ordered by MD. [facility] 19:50 Discharged to home ambulatory. lp1 19:50 Condition: good 19:50 Discharge instructions given to patient, Instructed on discharge instructions, follow up and referral plans. medication usage, Demonstrated understanding of instructions, follow-up care, medications, Prescriptions given X 2. 19:52 Patient left the ED. lp1 Signatures: Fransisco Ricks PA PA [facility] Adela Guidry Ana Parker, RN RN Jacki Diaz RN RN 1 Arti Erazo RN RN 2 Ca [place] 3 Corrections: (The following items were deleted from the chart) 15:14 15:13 Allergies: No Known Allergies; 2 tw2 15:14 15:13 Home Meds: None; 2 tw2 15:15 15:06 Chief complaint: Patient states: i just finished talking to [employer] over the tw2 phone. she thinks i may be getting septic from my abscess tooth. i am having fever. constant body aches. i started tasting something rotten when i drank or ate about 3 weeks ago. i frequently get tonsil stones. so i started gargling with hydrogen peroxide. but i found out about the abscessed tooth about 4 days ago. i lost my voice last week and i am congested. i was testing for covid 5 days ago and it was negative. and my stomach hurts. tw2
== END 2021-04-21 19:52 | disposition home or self-care (01) ==
LOC: ER 15:03
DX: K08.89 Other specified disorders of teeth and supporting structures (principal); Z88.6 Allergy status to analgesic agent
CPT/HCPCS: 36415; 80053; 81003; 81025; 83605; 84145; 85025; 96374; 99284; J7030